=== PATIENT | male | born 1955 | race Caucasian/White ===

== ENCOUNTER 2019-07-20 04:38 | Emergency (ER) | payer OTHER ==
[~2019-07-20 04:38] MED LIST: ASPIRIN LOW DOS81 M2 PO; BACTRIM DS1 TAB OR; CENTRUM SILVER1 TAB PO; CRESTOR10 MG OR; CRESTOR20 MG PO; DIABETA2.5 MG PO; DICLOFENAC75 MG PO; DOXYCYC MONO100 M1 OR; FISH OIL1000 MG PO; FLEXERIL PO; HYDROCO/APAP1 TA1 PO; IBUPROFEN200 MG OR; KEFLEX500 MG OR; LIPITOR40 MG PO; LISINOPRIL2.5 MG PO; LORTAB 5 OR; LORTAB 5 PO; LORTAB 7.5 OR; NAPROSYN500 MG OR; NAPROSYN500 MG PO; NASCENT IODINE PO; NIASPAN500 MG OR; NO MEDS; OMEGA-3 FIS1 PO; PERCOCET 5/325M1 TAB OR; PLETAL100 MG PO; PRILOSEC40 MG PO; TOPROL XL25 M1 PO; TRAMADOL HCL50 MG OR; ZESTRIL5 M1 PO
[2019-07-20] MEDS ORDERED: AMOX/K CLAV875 M1 PO (05:11)
[2019-07-20 05:30] VITALS: BP 157/92
== END 2019-07-20 05:30 | disposition home or self-care (01) ==
LOC: ED 04:38
DX: S51.811A Laceration without foreign body of right forearm, initial encounter (principal); X58.XXXA Exposure to other specified factors, initial encounter

== ENCOUNTER 2019-07-31 11:50 | Emergency (ER) | payer OTHER ==
[~2019-07-31] VITALS: Ht 195.6 cm; Wt 122.0 kg
[~2019-07-31 11:50] MED LIST changes: +AMOX/K CLAV875 M1 PO
[2019-07-31] MEDS ORDERED: CEPHALEXIN500 MG PO (12:21)
[2019-07-31 12:40] VITALS: BP 145/97
== END 2019-07-31 12:40 | disposition home or self-care (01) ==
LOC: ED 11:50
DX: S61.501D Unspecified open wound of right wrist, subsequent encounter (principal); L08.9 Local infection of the skin and subcutaneous tissue, unspecified; X58.XXXD Exposure to other specified factors, subsequent encounter; I10 Essential (primary) hypertension; I73.9 Peripheral vascular disease, unspecified

== ENCOUNTER 2021-05-01 14:21 | Emergency (ER) | payer MEDICARE, MEDICAID ==
[~2021-05-01] VITALS: Ht 195.6 cm; Wt 126.0 kg
[~2021-05-01 14:21] MED LIST changes: +CEPHALEXIN500 MG PO
[2021-05-01 14:52] LABS: HEMATOCRIT 46.6 % (39.0-50.0); IMMATURE GRANULOCYTES 0.1 % (0.0-5.0); MEAN CELL VOLUME 90.1 fL CALC (80.0-100.0); MEAN CORPUSCULAR HGB CONC 32.2 g/dL CAL (32.0-36.0); NEUT# 3.5 thou/uL (1.82-7.42); RED BLOOD COUNT 5.17 mill/uL (4.70-6.10); RED CELL DISTRI WIDTH 14.2 % (11.5-15.5)
[2021-05-01 15:01] LABS: ALBUMIN 4.4 g/dL (3.2-5.0); ALKALINE PHOSPHATASE 75 u/l (38-126); ANION GAP 14 (6-22 (CALC)); BUN 16 mg/dL (8-23); BUN/CREATININE RATIO 14 (12-20 (CALC)); CARBON DIOXIDE 26 mmol/l (22-30); CHLORIDE 105 mmol/l (95-108); CREATININE 1.2 mg/dL (0.7-1.3); GFR > 60 ML/MIN (>=60 (CALC)); GFR FOR AFR.AMER. > 60 ML/MIN (>=60 (CALC)); MAGNESIUM 2.2 mg/dL (1.6-2.3); POTASSIUM 3.9 mmol/l (3.5-5.1); SGOT/AST 21 u/l (19-48); SODIUM 140 mmol/l (137-146); TOTAL PROTEIN 8.3 g/dL (6.3-8.2)
[2021-05-01 15:08] LABS: BILIRUBIN, TOTAL 1.5 mg/dL (0.0-1.4)
[2021-05-01 15:13] LABS: MYOGLOBIN 50 ng/mL (0 - 121)
[2021-05-01 17:38] VITALS: BP 145/90
[2021-05-01 17:44] LABS: ACT PARTIAL THROMBO TIME 27.8 SECONDS (20.0-32.5); INTERNATIONAL NORMALIZED RATIO 0.9 RATIO (0.7-1.3); PROTHROMBIN TIME 9.9 SECONDS (9.0-12.5)
[2021-05-01 18:01] VITALS: BP 165/119
[2021-05-01 18:18] VITALS: BP 165/119
== END 2021-05-01 18:20 | disposition short-term general hospital (02) ==
LOC: ED 14:21
PROVIDERS: Nurse Practitioner
DX: I47.1 Supraventricular tachycardia (principal); I72.4 Aneurysm of artery of lower extremity; I77.9 Disorder of arteries and arterioles, unspecified; I10 Essential (primary) hypertension; E78.5 Hyperlipidemia, unspecified
CPT/HCPCS: J1644; Q9967

== ENCOUNTER 2023-09-10 04:04 | Emergency (ER) | payer MEDICARE, MEDICAID ==
[~2023-09-10] VITALS: Ht 195.6 cm; Wt 80.0 kg
[2023-09-10] VITALS (7 sets, daily range): BP systolic 156–192; BP diastolic 87–103
[2023-09-10] MEDS ORDERED: hydrALAZINE HCL 20 MG/ML VIAL(1 ML) IV ONE (04:45)
[2023-09-10] MEDS ORDERED: KETOROLAC TROMETHAMINE 30 MG/ML SDV IV ONE (04:45)
[2023-09-10 05:26] LABS: BASO% 0.4 % (0-3); EOS% 1.3 % (0-8); HEMATOCRIT 44.9 % (39.0-50.0); IMMATURE GRANULOCYTES 0.4 % (0.0-5.0); LYMPH% 16.2 % (15-41); MEAN CELL VOLUME 89.8 fL CALC (80.0-100.0); MEAN CORPUSCULAR HGB CONC 33.4 g/dL CAL (32.0-36.0); MONO% 5.2 % (2-13); NEUT# 7.75 thou/uL (1.82-7.42); NEUT% 76.5 % (42-76); RED CELL DISTRI WIDTH 13.8 % (11.5-15.5)
[2023-09-10] MEDS ORDERED: PANTOPRAZOLE SO40 M1 PO (05:32)
[2023-09-10] MEDS ORDERED: GABAPENTIN800 MG PO (05:34)
[2023-09-10 05:35] LABS: POTASSIUM 4.6 mmol/l (3.5-5.1)
[2023-09-10] MEDS ORDERED: CARAFATE1 GM PO (05:37)
[2023-09-10] MEDS ORDERED: ATORVASTATIN CA80 MG PO (05:37)
[2023-09-10] MEDS ORDERED: LISINOPRIL5 MG PO (05:38)
[2023-09-10 05:40] LABS: CREATININE 0.9 mg/dL (0.7-1.3)
[2023-09-10] MEDS ORDERED: HYDROcodone/Acetaminophen 1 COMBO TAB PO ONE (06:00)
[2023-09-10] MEDS ORDERED: MORPHINE SULFATE 4 MG/ML VIAL IM ONE (09:45)
[2023-09-10] MEDS ORDERED: ONDANSETRON 4 MG/TAB ODT PO ONE (09:45)
== END 2023-09-10 09:56 | disposition home or self-care (01) ==
LOC: ED 04:04
PROVIDERS: Family Medicine
DX: I72.4 Aneurysm of artery of lower extremity (principal); I73.9 Peripheral vascular disease, unspecified; I10 Essential (primary) hypertension; M71.22 Synovial cyst of popliteal space [Baker], left knee; T46.4X6A Underdosing of angiotensin-converting-enzyme inhibitors, initial encounter; Z91.128 Patient's intentional underdosing of medication regimen for other reason